=== PATIENT | male | born 1955 | race Caucasian/White ===

== ENCOUNTER 2022-05-03 16:24 | Inpatient (IN) | payer BC, MEDICAID ==
[~2022-05-03] VITALS: Ht 177.8 cm; Wt 73.9 kg
[2022-05-03] MEDS ORDERED: PIPERACILLIN/TAZ 3.375G PREMIX 50 ML IV ONE (20:00)
[2022-05-03] MEDS ORDERED: VANCOMYCIN 1G PREMIX 200 ML IV ONE (20:00)
[2022-05-03 21:57] LABS: BASOPHILS % 1.1 % (0.0-2.0); EOSINOPHILS % 0.8 % (0.0-5.0); HEMATOCRIT. 34.8 % (42.0-52.0); HEMOGLOBIN. 11.7 g/dL (14.0-18.0); LYMPHOCYTES % 12.1 % (20.0-50.0); MEAN CORPUSCULAR HEMOGLOBIN 29.5 pg (28.0-32.0); MEAN CORPUSCULAR VOLUME 88.2 fL (80.0-94.0); MEAN PLATELET VOLUME 8.1 fl (7.4-10.4); MONOCYTES % 5.5 % (2.0-8.0); NEUTROPHILS % 80.5 % (40.0-76.0); PLATELET 281 x1000/uL (130-400); RED BLOOD CELL COUNT 3.95 mill/uL (4.7-6.1); RED CELL DISTRIBUTION WIDTH 14.8 % (11.6-14.6)
[2022-05-03 22:05] LABS: CHLORIDE 104 mEq/L (98-107)
[2022-05-03 22:06] LABS: PROTHROMBIN TIME 10.9 sec (9.6-11.0)
[2022-05-04] VITALS (7 sets, daily range): BP systolic 122–156; BP diastolic 64–83
[2022-05-04] MEDS ORDERED: VANCOMYCIN 1GM PMX (XELLIA) 200 ML IV NR (02:45)
[2022-05-04] MEDS ORDERED: PIPERACILLIN/TAZ 3.375G PREMIX 50 ML IV NR (02:45)
[2022-05-04] MEDS ORDERED: ACETAMINOPHEN 325MG TABLET PO PRN (09:45)
[2022-05-04] MEDS ORDERED: ONDANSETRON HCL 4MG/2ML INJ IV PRN (09:45)
[2022-05-04] MEDS ORDERED: DIPHENHYDRAMINE 50MG/ML VIAL IV PRN (09:45)
[2022-05-04] MEDS ORDERED: CLONIDINE 0.1MG TABLET PO PRN (09:45)
[2022-05-04] MEDS ORDERED: IPRATROPIUM/ALBUTEROL 0.5-3(2.5)MG/3ML NEB HHN PRN (09:45)
[2022-05-04] MEDS ORDERED: DEXTROSE 50% WATER 50ML SYRINGE IV PRN (13:45)
[2022-05-04] MEDS ORDERED: PIPERACILLIN/TAZOBACTAM 3.375 G in DEXTROSE 5% WATER 50 ML IV SCH (14:00)
[2022-05-04] MEDS: PIPERACILLIN/TAZOBACTAM 3.375 G in DEXTROSE 5% WATER 50 ML IV SCH ×2 (15:54→22:15)
[2022-05-04] MEDS: AMLODIPINE 5MG TABLET PO SCH (15:54)
[2022-05-04] MEDS: BLOOD SUGAR DIAGNOSTIC STRIP TEST SCH ×2 (17:16→21:18)
[2022-05-04] MEDS: INSULIN LISPRO 100 UNITS/ML SUBCUT SCH ×2 (17:50→21:00)
[2022-05-04] MEDS ORDERED: VANCOMYCIN 1GM PMX (XELLIA) 200 ML IV SCH (21:00)
[2022-05-05 04:00] VITALS: BP 143/79
[2022-05-05] MEDS: PIPERACILLIN/TAZOBACTAM 3.375 G in DEXTROSE 5% WATER 50 ML IV SCH ×2 (05:20→13:44)
[2022-05-05] MEDS ORDERED: VANCOMYCIN 1GM PMX (XELLIA) 200 ML IV SCH (06:00)
[2022-05-05] MEDS: BLOOD SUGAR DIAGNOSTIC STRIP TEST SCH ×4 (06:28→21:09)
[2022-05-05] MEDS: INSULIN LISPRO 100 UNITS/ML SUBCUT SCH ×4 (07:41→21:00)
[2022-05-05 08:00] VITALS: BP 129/79
[2022-05-05 08:24] LABS: BASOPHILS % 0.4 % (0.0-2.0); EOSINOPHILS % 3.8 % (0.0-5.0); HEMOGLOBIN. 11.5 g/dL (14.0-18.0); LYMPHOCYTES % 20.3 % (20.0-50.0); MEAN CORPUSCULAR HEMOGLOBIN 29.7 pg (28.0-32.0); MEAN CORPUSCULAR VOLUME 87.5 fL (80.0-94.0); MEAN PLATELET VOLUME 8.5 fl (7.4-10.4); MONOCYTES % 6.2 % (2.0-8.0); NEUTROPHILS % 69.3 % (40.0-76.0); PLATELET 289 x1000/uL (130-400); RED BLOOD CELL COUNT 3.89 mill/uL (4.7-6.1); RED CELL DISTRIBUTION WIDTH 14.1 % (11.6-14.6)
[2022-05-05 08:39] LABS: CHLORIDE 105 mEq/L (98-107)
[2022-05-05] MEDS: AMLODIPINE 5MG TABLET PO SCH (09:00)
[2022-05-05] MEDS ORDERED: VANCOMYCIN 750MG PREMIX 150 ML IV SCH (11:00)
[2022-05-05 12:00] VITALS: BP 131/78
[2022-05-05 16:00] VITALS: BP 126/69
[2022-05-05 20:00] VITALS: BP 128/72
[2022-05-06] VITALS: BP 128/72
[2022-05-06 04:02] VITALS: BP 142/85
[2022-05-06] MEDS: BLOOD SUGAR DIAGNOSTIC STRIP TEST SCH ×4 (06:35→21:00)
[2022-05-06] MEDS: INSULIN LISPRO 100 UNITS/ML SUBCUT SCH ×4 (06:36→21:00)
[2022-05-06 07:45] LABS: CHLORIDE 103 mEq/L (98-107)
[2022-05-06 08:00] VITALS: BP 143/77
[2022-05-06] MEDS: AMLODIPINE 5MG TABLET PO SCH (08:27)
[2022-05-06 12:00] VITALS: BP 138/72
[2022-05-06 16:00] VITALS: BP 133/65
[2022-05-06 20:00] VITALS: BP_SYST 137; BP_SYST 145; BP_DIAS 78; BP_DIAS 82
[2022-05-07] VITALS: BP 132/74
[2022-05-07 04:00] VITALS: BP 142/78
[2022-05-07] MEDS: BLOOD SUGAR DIAGNOSTIC STRIP TEST SCH ×4 (07:20→21:00)
[2022-05-07] MEDS: INSULIN LISPRO 100 UNITS/ML SUBCUT SCH ×4 (07:50→21:00)
[2022-05-07 08:00] VITALS: BP 134/75
[2022-05-07] MEDS: AMLODIPINE 5MG TABLET PO SCH (08:46)
[2022-05-07] MEDS ORDERED: METF-415 MT (09:23)
[2022-05-07] MEDS: METFORMIN HCL 850MG TABLET PO SCH ×2 (11:00→17:59)
[2022-05-07 12:00] VITALS: BP 124/76
[2022-05-07 16:00] VITALS: BP 117/63
[2022-05-07] MEDS: VANCOMYCIN 1GM PMX (XELLIA) 200 ML IV SCH (18:00)
[2022-05-07] MEDS ORDERED: VANCOMYCIN 1,750 MG in DEXT 5% WATER 500 ML IV NR (18:00)
[2022-05-07 20:00] VITALS: BP 125/68
[2022-05-08] VITALS: BP 120/68
[2022-05-08 04:00] VITALS: BP 133/74
[2022-05-08] MEDS: VANCOMYCIN 1GM PMX (XELLIA) 200 ML IV SCH (06:56)
[2022-05-08] MEDS: METFORMIN HCL 850MG TABLET PO SCH ×2 (06:56→18:06)
[2022-05-08] MEDS: INSULIN LISPRO 100 UNITS/ML SUBCUT SCH ×4 (07:26→21:00)
[2022-05-08] MEDS: BLOOD SUGAR DIAGNOSTIC STRIP TEST SCH ×4 (07:26→21:18)
[2022-05-08 08:00] VITALS: BP 151/87
[2022-05-08 08:55] LABS: BASOPHILS % 0.6 % (0.0-2.0); EOSINOPHILS % 3.1 % (0.0-5.0); HEMATOCRIT. 35.1 % (42.0-52.0); HEMOGLOBIN. 11.9 g/dL (14.0-18.0); LYMPHOCYTES % 28.5 % (20.0-50.0); MEAN CORPUSCULAR HEMOGLOBIN 29.7 pg (28.0-32.0); MEAN CORPUSCULAR VOLUME 87.4 fL (80.0-94.0); MONOCYTES % 5.2 % (2.0-8.0); NEUTROPHILS % 62.6 % (40.0-76.0); PLATELET 333 x1000/uL (130-400); RED BLOOD CELL COUNT 4.02 mill/uL (4.7-6.1); RED CELL DISTRIBUTION WIDTH 13.9 % (11.6-14.6)
[2022-05-08 08:56] LABS: CHLORIDE 104 mEq/L (98-107)
[2022-05-08 09:03] LABS: CREATINE KINASE 64 IU/L (39-308)
[2022-05-08] MEDS: AMLODIPINE 5MG TABLET PO SCH (09:10)
[2022-05-08 12:00] VITALS: BP 162/85
[2022-05-08 16:10] VITALS: BP 155/81
[2022-05-08] MEDS ORDERED: VANCOMYCIN 1GM PMX (XELLIA) 200 ML IV SCH (18:00)
[2022-05-08] MEDS: CEFAZOLIN 1000MG PREMIX 50 ML IV SCH (18:06)
[2022-05-08 20:00] VITALS: BP 120/67
[2022-05-09] VITALS: BP 122/65
[2022-05-09] MEDS: CEFAZOLIN 1000MG PREMIX 50 ML IV SCH ×2 (02:00→08:31)
[2022-05-09 04:00] VITALS: BP 144/78
[2022-05-09 04:41] LABS: BASOPHILS % 0.4 % (0.0-2.0); EOSINOPHILS % 3.1 % (0.0-5.0); HEMATOCRIT. 35.9 % (42.0-52.0); HEMOGLOBIN. 11.9 g/dL (14.0-18.0); LYMPHOCYTES % 28.1 % (20.0-50.0); MEAN CORPUSCULAR HEMOGLOBIN 28.6 pg (28.0-32.0); MEAN CORPUSCULAR VOLUME 86.5 fL (80.0-94.0); MEAN PLATELET VOLUME 7.8 fl (7.4-10.4); NEUTROPHILS % 62.4 % (40.0-76.0); PLATELET 368 x1000/uL (130-400); RED BLOOD CELL COUNT 4.16 mill/uL (4.7-6.1); RED CELL DISTRIBUTION WIDTH 14.1 % (11.6-14.6)
[2022-05-09 06:36] LABS: CHLORIDE 104 mEq/L (98-107)
[2022-05-09] MEDS: BLOOD SUGAR DIAGNOSTIC STRIP TEST SCH ×2 (06:38→12:31)
[2022-05-09] MEDS: INSULIN LISPRO 100 UNITS/ML SUBCUT SCH ×2 (07:50→12:50)
[2022-05-09 08:00] VITALS: BP 136/78
[2022-05-09] MEDS: METFORMIN HCL 850MG TABLET PO SCH (08:30)
[2022-05-09] MEDS ORDERED: LIDOCAINE HCL 1% 10 MG/ML 10ML VIAL ONE (10:11)
[2022-05-09 12:00] VITALS: BP 140/80
[2022-05-09] MEDS ORDERED: AMLO5TAB88 PO (12:23)
[2022-05-09 16:23] VITALS: BP 140/80
== END 2022-05-09 17:09 | disposition home health service (06) | DRG 638 ==
LOC: ER 16:24 → MICUSO 21:46 → EDBEDREQTM 21:56 → EDBEDREQ 21:56 → 6EST 05-04 11:29
PROVIDERS: ADMIT Internal Medicine; ATTEND Internal Medicine
PROC: 02HV33Z Insertion of Infusion Device into Superior Vena Cava, Percutaneous Approach (ICD-10-PCS; principal; 2022-05-09)
PROC: B548ZZA Ultrasonography of Superior Vena Cava, Guidance (ICD-10-PCS; 2022-05-09)
DX: E11.69 Type 2 diabetes mellitus with other specified complication (principal); L97.419 Non-pressure chronic ulcer of right heel and midfoot with unspecified severity; M86.8X7 Other osteomyelitis, ankle and foot; E11.621 Type 2 diabetes mellitus with foot ulcer; E78.5 Hyperlipidemia, unspecified; N17.9 Acute kidney failure, unspecified; D64.9 Anemia, unspecified; Z20.822 Contact with and (suspected) exposure to COVID-19; B95.61 Methicillin susceptible Staphylococcus aureus infection as the cause of diseases classified elsewhere; I10 Essential (primary) hypertension; Z79.4 Long term (current) use of insulin; Z89.411 Acquired absence of right great toe
CPT/HCPCS: 36415; 36573; 71045; 73620; 73718; 80048; 80053; 80202; 82550; 82962; 83036; 83605; 85025; 85651; 86140; 87070; 87077; 87186; 87426; 93970; 99285; C1725; C1769; J0690; J2543; J3370; J3490; J7060